=== PATIENT | male | born 1995 | race African-American/Black ===

== ENCOUNTER 2017-11-23 02:06 | Emergency (ER) | payer SELFPAY ==
[2017-11-23 02:16] VITALS: BP 112/70; PULSE 76; TEMP 98; BMI 21.2
== END 2017-11-23 02:28 | disposition left against medical advice (07) ==
LOC: JER 02:06
DX: Z53.21 Procedure and treatment not carried out due to patient leaving prior to being seen by health care provider (principal)
CPT/HCPCS: 99281-25

== ENCOUNTER 2023-12-10 19:04 | Emergency (ER) | payer OTHER ==
[2023-12-10 19:11] VITALS: BP 110/67; PULSE 85; RESP 18; TEMP 98.7; BMI 20.7
[2023-12-10] MEDS: SODIUM CHLORIDE 1,000 ML IV ONE (19:35)
[2023-12-10] MEDS ORDERED: ONDANSETRON 4 MG/2 ML VIAL ONE (19:36)
[2023-12-10] MEDS: ONDANSETRON 4 MG/2 ML VIAL IVPB ONE (19:38)
[2023-12-10 19:51] LABS: HEMATOCRIT 41.3 % (35.4-49); MCH 30.5 pg (25.7-33.7); MCHC 33.8 g/dl (32.0-35.9); MEAN PLT VOLUME 10.1 fl (7.5-11.1); RBC 4.59 10^6/uL (4.00-5.60); RDW 15.7 % (11.9-15.9); WHITE BLOOD COUNT 6.1 10^3/uL (4.0-10.8)
[2023-12-10 20:12] LABS: ALBUMIN 4.2 g/dl (3.4-5.0); BILIRUBIN,TOTAL 0.6 mg/dl (0.2-1); CALCIUM 9.2 mg/dl (8.5-10.1); CREATININE 0.9 mg/dl (0.6-1.3); MAGNESIUM 2.1 mg/dL (1.8-2.4); PHOSPHOROUS 2.5 (2.5-4.9); POTASSIUM 3.4 mmol/L (3.5-5.1); TOT PROT 6.9 g/dl (6.4-8.2)
[2023-12-10] MEDS ORDERED: POTASSIUM CHLORIDE TABS 20 MEQ TABLET.ER (FP) PO ONE (20:45)
[2023-12-10] MEDS ORDERED: LOPERAMIDE HCL 2 MG CAPSULE ONE (20:45)
[2023-12-10] MEDS: LOPERAMIDE HCL 2 MG CAPSULE PO ONE (20:46)
[2023-12-10] MEDS: POTASSIUM CHLORIDE TABS 20 MEQ TABLET.ER (FP) PO ONE (20:46)
== END 2023-12-10 20:49 | disposition home or self-care (01) ==
LOC: FER 19:04
PROC: 3E033NZ Introduction of Analgesics, Hypnotics, Sedatives into Peripheral Vein, Percutaneous Approach (ICD-10-PCS; principal; 2023-12-10)
PROC: 3E0337Z Introduction of Electrolytic and Water Balance Substance into Peripheral Vein, Percutaneous Approach (ICD-10-PCS; 2023-12-10)
DX: R11.2 Nausea with vomiting, unspecified (principal); R19.7 Diarrhea, unspecified
CPT/HCPCS: 36415; 80053; 83735; 84100; 85027; 99284-25